=== PATIENT | female | born 1945 | race Caucasian/White ===

== ENCOUNTER → 2016-08-19 | Outpatient (CLI) | payer OTHER ==
[~2016-08-19] VITALS: Ht 162.6 cm; Wt 91.2 kg
[~2016-08-19] MED LIST: ACETAMINOPHEN-1 EAC1 PO; ADULT LOW DOSE81 MG PO; ALLEGRA ALLERG180 MG PO; ALPRAZOLAM 0.50.5 M1 PO; AMBIEN 10 MG TA10 MG PO; ASPIRIN81 M2 PO; BENADRYL25 MG PO; BENTYL10 MG PO; CALCIUM 600 +1 EAC1 PO; CELEBREX 200 M200 MG PO; CLONIDINE0.1 PO; COLACE100 MG PO; CYCLOBENZAPRINE10 MG PO; CYMBALTA60 MG PO; DIAZEPAM 5 MG5 M1 PO; GABAPENTIN 100100 MG PO; GABAPENTIN100 MG PO; GLUCOPHAGE500 MG PO; HYDROCODON-ACE1 EAC7 PO; HYDROCODONE-AP1 EAC6 PO; HYDROXYCHLOROQ200 M1 PO; LISINOPRIL10 MG PO; LYRICA 75 MG CA75 MG PO; MS CONTIN 30 MG30 M1 PO; MS CONTIN 30 MG30 MG PO; MS CONTIN15 MG PO; MS CONTIN30 MG PO; MS CONTIN60 MG; NEURONTIN 300300 M1 PO; NEURONTIN 300M300 M2 PO; NEURONTIN 400400 M1 PO; NEXIUM40 MG PO; NORCO 10-325 T1 EACH PO; NORCO 5-325 TA1 EACH PO; OMEPRAZOLE20 MG PO; OXYCODONE-ACET1 EAC2 PO; OXYCONTIN CR 1010 MG PO; PERCOCET 10-321 EACH PO; PLAVIX 75 MG TA75 MG PO; PREDNISONE 5 MG5 M1 PO; PROPRANOLOL 20M20 M1 PO; ROBAXIN 750 MG750 M1 PO; SALONPAS PATCH1 EAC1; SIMVASTATIN40 MG PO; SIMVASTATIN80 MG PO; TEGRETOL200 MG PO; TRAMADOL 50 MG50 MG PO; VITAMIN D 5050000 I1 PO; VITAMIN D1000 UNI1 PO; VITAMIN D10000 UNIT PO; VITAMIN D250000 UNIT PO; [UNRECOGNIZED DRUG - MIXTURE] TOP
--- NOTE | ~2016-08-19 | HPC ---
[facility] [place] [place] [address] PAIN MANAGEMENT CONSULTATION Name: DANNY FRANCOIS Room #: REG EVANGELINA Rasta#: [id number] Admission: 08/19/16 Attend Phys: Jed Cuellar DO Discharge: Date of : 41 Report #: [id number] THIS REPORT FOR: //name// CC: Sabas Cuellar HISTORY OF PRESENT ILLNESS: The patient is a very pleasant 71-year-old female. She was seen a little greater than a year ago for lumbar spondylitic symptoms. She is status post lumbar decompressive laminectomy infusion L4, L5, S1. We had proceeded with bilateral L2-L3 and L3-L4 facet joint injections. The patient noted nominal relief with this. She has done reasonably well with her general low back pain, but the last several months, pain has increased in the right low back. She had had a right total knee arthroplasty last fall; unfortunately she had had this advised in May. She has done very well subsequent to the revision in May 2016. She is off of all opiate analgesics (she did take some hydrocodone for surgery though she noted hives with this). She notes she worked through physical therapy and did well. Range of motion actually in that knee is quite good. She is using a cane in the right hand for right low back pain. PHYSICAL EXAMINATION: Shows a 71-year-old female, moderately endomorphic build with a BMI approaching 30 kilograms per meter squared. Vital signs stable as noted in the EMR. Very tender in the right low back, well-healed scar compatible with her prior low lumbosacral fusion, a little tender above the fusion, but very tender below. Positive Humberto test bilaterally. 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 Status post right total knee arthroplasty with revision. Intolerant to hydrocodone. RECOMMENDATION: 1. Long discussion with the patient today about therapeutic option. We have elected to trial Tylenol No. 3. She has showed an allergic reaction to synthetic narcotics (hydrocodone) will try codeine, which is basically diamorphine a naturally occuring substance, hopefully should have less reaction with this. She was cautioned about daytime somnolence, mental acuity changes, constipation. Given a prescription for 60 tablets with directions to take half to one tablet q. 6 hours as needed for pain. 2. We will trial a right SI joint injection under fluoroscopy today for the SI mediated pain, which appears to be relatively new diagnosis today. Continue exercising and follow up in 4 weeks to reevaluation. ASSESSMENT: 1. Symptomatic right SI joint dysfunction. PROCEDURE NOTE: Right SI joint injection under fluoroscopy. PROCEDURE: After written informed consent was obtained, the patient was taken [address] [address] PAIN MANAGEMENT CONSULTATION Name: DANNY FRANCOIS Room #: REG CLI Rasta#: [id number] Admission: 08/19/16 Attend Phys: Jed Cuellar DO Discharge: Date of : 41 Report #: [id number] to the fluoroscopy suite and placed in prone position. After sterile prep and drape, skin wheal was raised. A 22-gauge stylet needle was placed to contact the inferior aspect of the right SI joint. Negative aspiration was accomplished. 1 mL of Omnipaque was injected, which showed spread within the joints followed with 40 mg triamcinolone plus 2 mL of 0.5% preservative-free bupivacaine. Needle was removed. The area was cleansed, Band-Aids applied. The patient monitored for an appropriate period of time, discharged in good and stable condition. ASSESSMENT: 2. Lumbar radiculopathy status post decompressive laminectomy, component of lumbar spondylosis and complex medication management. RECOMMENDATIONS: Tylenol No. 3, prescription generated today, cautioned on daytime somnolence, mental acuity changes, constipation. By: [id number] Jed Cuellar DO /nt
[2016-08-19 08:17] VITALS: BP 136/71
== END | disposition home or self-care (01) ==
LOC: PAIN 06:28
DX: M53.3 Sacrococcygeal disorders, not elsewhere classified (principal); M54.16 Radiculopathy, lumbar region; M47.896 Other spondylosis, lumbar region; Z98.890 Other specified postprocedural states